=== PATIENT | female | born 1990 | race Two or more races ===

== ENCOUNTER 2025-03-12 15:02 | Outpatient (AMB) | payer MEDICAID, SELFPAY ==
[2025-03-12 15:39] VITALS: BP 102/69; PULSE 77; RESP 14; TEMP 36.7; O2SAT 97; BMI 29.0
--- NOTE | 2025-03-12 15:39 | OBCLNT_ITS ---
Vital Signs 03/12/25 15:39 Height 1.52 m Height Method Stated Weight 67.358 kg Weight Measurement Method Standing Scale BMI 29.0 BP 102/69 Blood Pressure Source Automatic Cuff Blood Pressure Location Left Upper Arm Position Sitting Respiration 14 Pulse 77 Pulse Source Monitor Temp 98.0 F Temp Source Oral Pulse Oximetry (%) 97 Oxygen Delivery Method Room Air Allergies/Home Meds Allergies & Medications Allergies No Known Allergies Allergy (Verified 03/19/25 06:57) Medication Reconciliation No Known Home Medications 03/12/25 [History Confirmed 03/12/25] Intake Visit Data Collection New Patient or Established: New Patient (never been to [facility]) Reason for Visit:: INITIAL CARE Seen by Clinical Staff ONLY (RN/MA): No Occupational Therapy Teacher Required: Yes Occupational Therapy Teacher's name/title: MAYURI DELEON Do You Feel Safe at Home: Yes Authorities Contacted: N/A PCP or OBGYN visit in last 3 months: No Hx Now: Yes Are you currently on any form of Control: No Last menstrual period: 08/13/24 Pain Present Currently: No Pain Scale Used: Tovar-Bailey/Numerical Pain scale:: 0 Smoking Status Smoking Status: Never smoker Questionnaires Covid-19 Vaccine Questionnaire Has patient been vacinated for Covid-19 Have you been vacinated for Covid-19: Yes PHQ-9 PHQ-2 Over the last 2 weeks, how often have you been bothered by any of the following problems? 1. Little interest or pleasure in doing things: not at all 2. Feeling down, depressed, or hopeless: not at all Total score: 0 PHQ-9 3. Trouble falling or staying asleep, or sleeping too much: Not at all 4. Feeling tired or having little energy: Not at all 5. Poor appetite or overeating: Not at all 6. Feeling bad about yourself - or that you are a failure or have let yourself or your family down: Not at all 7. Trouble concentrating on things, such as reading the newspaper or watching television: Not at all 8. Moving or speaking so slowly that other people could have noticed? - Or the opposite - being so fidgety or restless that you have been moving around a lot more than usual: not at all 9. Thoughts that you would be better off or of hurting yourself in some way: Not at all Total score: 0 Source: Developed by Drs. Raciel Cheng, Uma Ibanez, Prem Cruz and colleagues, with an educational chucho from [employer]. 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 Has 2 daughters aged 9 and 18 Tobacco History Smoking Status: Never smoker Second Hand Smoke Exposure: No Alcohol History Alcohol Intake: Never Domestic Abuse History Do You Feel Safe at Home: Yes History of Present Illness HPI Narrative The patient is a 34-year-old -0-0-2 presents as a transfer of care from [facility] at approximate 33 weeks. The due date patient has been given is 05/23/2025. She is approximately 29 weeks . Today she denies bleeding cramping or any complaints she is reporting good movement. She is considering a tubal ligation. 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: Past Medical History Additional Operations/Hospitalizations (year & reason): 2006 in [place] Primary 2015 in [place] for induced labor postdates with failed induction Other Relevant History: Denies chronic medical problems including asthma diabetes or asthma OB Initial Visit Menstrual History Menstrual reliability: definite Flow: normal Menstrual regularity: irregular Monthly: Yes Age at menarche: 14 On control pills at conception: No OB History : 3 Para: 2 # of Living Children: 2 Delivery History 1st : Child's name: DARSHANA date: 05/06[birth year] sex: female Gestational age at delivery (weeks): 40 Delivery type: vaginal weight (lbs): 3628.739 g Delivery complications: NONE History of depression before or after : No 2nd : Child's name: ANGELA date: 06/26/15 sex: female Gestational age at delivery (weeks): 39 Delivery type: weight (lbs): 3458.642 g Delivery complications: NONE History of depression before or after : No Infection History & Risk Evaluation History of STDs: none Genetic Screening & History Genetic Screening/Teratology Counseling - Includes patient, baby's father, or anyone in either family with: 1. Patient's age 35 years or older as of estimated date of delivery: No 2. Thalassemia (Belizean, Surinamese, Mediterranean, or Background); MCV less than 80: No 3. Neural Tube Defect (Meningomyelocele, Spina Bifida, or Anencephaly): No 4. Congenital Heart Defect: No 5. Down Syndrome: No 6. Mahamed-Sachs (Ashkenazi Gnosticist, Cajun, Spanish [place]): No 7. Frankie Disease (Ashkenazi Gnosticist): No 8. Familial Dysautonomia (Ashkenazi Gnosticist): No 9. Sickle Cell Disease or Trait (): No 10. Hemophilia or other blood disorders: No 11. Muscular Dystrophy: No 12. Cystic Fibrosis: No 13. Inyo's Chorea: No 14. Mental Retardation/Autism: No 15. Other inherited genetic or chromosomal disorder: No 16. Maternal Metabolic Disorder (EG,TYPE 1 Diabetes, PKU): No 17. Patient or baby's father had a child with defects not listed above: No 18. Recurrent loss or a stillbirth: No 19. Medications (including supplements, vitamins, herbs or otc drugs)/illicit/recreational drugs/alcohol since last menstrual period: No 20. Any other: No Infection History 1. Live with someone with TB or exposed to TB: No 2. Rash or viral illness since last menstrual period: No 3. Hepatitis B,C: No Other (see comments) Source: [employer] Exam Narrative Physical exam: Has a vertical skin incision patient verbally consents for a Pfannenstiel skin incision. Fundus firm approximately 30 weeks size General Limitations: no limitations General Appearance: alert, in no apparent distress, comfortable, cooperative, healthy appearing and well groomed Assessment & Plan Diagnosis / Problem List (1) : Status: Acute Qualifiers: Weeks of gestation: 29 weeks Qualified Code(s): Z3A.29 - 29 weeks gestation of Plan: labs from [facility] scanned in on chart. Labs O+ /antibody negative/ rubella immune /RPR nonreactive /hepatitis B surface antigen negative/ GC negative /Chlamydia negative /AFP negative /NIPT negative /CF negative (2) Previous section: Status: Acute Plan: Unknown scar in [place]. Plan for elective repeat approximately 38 weeks.
== END 2025-03-12 16:12 | disposition home or self-care (01) ==
LOC: HODSOBC 15:02
PROVIDERS: Supervising Provider Obstetrics & Gynecology; Visit Provider Obstetrics & Gynecology
DX: O09.293 Supervision of pregnancy with other poor reproductive or obstetric history, third trimester (principal); O34.212 Maternal care for vertical scar from previous cesarean delivery; Z3A.29 29 weeks gestation of pregnancy
CPT/HCPCS: 99204; G0463

== ENCOUNTER 2025-04-04 15:14 | Outpatient (AMB) | payer MEDICAID, SELFPAY ==
[2025-04-04 15:37] VITALS: BP 102/68; PULSE 94; RESP 16; TEMP 36.2; O2SAT 98; BMI 29.9
--- NOTE | 2025-04-04 15:37 | AMB.OBVISIT ---
Vital Signs 04/04/25 15:37 Height 1.52 m Height Method Stated Weight 69.173 kg Weight Measurement Method Standing Scale BMI 29.9 BP 102/68 Blood Pressure Source Automatic Cuff Blood Pressure Location Left Upper Arm Position Sitting Respiration 16 Pulse 94 Pulse Source Monitor Temp 97.2 F Temp Source Oral Pulse Oximetry (%) 98 Oxygen Delivery Method Room Air Allergies/Home Meds Allergies & Medications Allergies No Known Allergies Allergy (Verified 04/04/25 15:38) Medication Reconciliation No Known Home Medications 03/12/25 [History Confirmed 04/04/25] Intake Visit Data Collection New Patient or Established: Established Patient (seen at [facility] within 3 years) Reason for Visit:: OBC Seen by Clinical Staff ONLY (RN/MA): No Wind Turbine Electrical Engineer Required: No Do You Feel Safe at Home: Yes Authorities Contacted: N/A PCP or OBGYN visit in last 3 months: Yes Date of Last PCP or OBGYN visit: 03/12/25 Hx Now: Yes Are you currently on any form of Control: No Pain Present Currently: No Pain Scale Used: Tovar-Bailey/Numerical Pain scale:: 0 Smoking Status Smoking Status: Never smoker Questionnaires Covid-19 Vaccine Questionnaire Has patient been vacinated for Covid-19 Have you been vacinated for Covid-19: Yes PHQ-9 PHQ-2 Over the last 2 weeks, how often have you been bothered by any of the following problems? 1. Little interest or pleasure in doing things: not at all 2. Feeling down, depressed, or hopeless: not at all Total score: 0 PHQ-9 3. Trouble falling or staying asleep, or sleeping too much: Not at all 4. Feeling tired or having little energy: Not at all 5. Poor appetite or overeating: Not at all 6. Feeling bad about yourself - or that you are a failure or have let yourself or your family down: Not at all 7. Trouble concentrating on things, such as reading the newspaper or watching television: Not at all 8. Moving or speaking so slowly that other people could have noticed? - Or the opposite - being so fidgety or restless that you have been moving around a lot more than usual: not at all 9. Thoughts that you would be better off or of hurting yourself in some way: Not at all Total score: 0 If you checked off any problems, how difficult have these problems made it for you to do your work, take care of things at home, or get along with other people?: not difficult at all Source: Developed by Drs. Raciel Cehng, Uma Ibanez, Prem Cruz and colleagues, with an educational chucho from [employer]. 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 Denies leaking, bleeding, contractions. Patient was a transfer from [facility] with records. She had an ultrasound December 24 by the nurse wiring technician and she was 11 weeks by crown-rump length this gave EDC of June 03, 2025. First ultrasound by maternal- medicine was February 13. IUP of 25 weeks 5 days. And this gives due date May 23, 2020. Discussed dates and reviewed records. Advised on labor precautions. Patient has a follow-up ultrasound on Monday. Discussed kick count. And continue prenatals. Return in 2 weeks with OB. Patient is a previous and needs to be scheduled DELIA Calculator Estimated Delivery Date Method Current WG Current Estimate 05/24/25 Ultrasound #1 32w 6d Other Estimates 05/23/25 LMP (Uncertain) 33w 0d 05/24/25 Manual 32w 6d patient had office sono by [facility]OCK 12/24:11w CRL Notes Visit Date: 04/04/25 Last Updated by: Lydia Christiansen CNM O+,abs-, rpr:reactive, 1:1 ,TPAnegative, GC.CT-, hiv-, hc-, hbsag-, 1 hr gtt: 123, A1c: 4.7. [facility]- Office Procedures OBC Clinic LOC & Office Proc's Nursing/Assessment Patient Status: Established Patient OB Clinic Nursing Assessment: Medication Reconciliation, Update PMH in EMR and Vital Signs OB Clinic Coordination of Care: Consent,records obtained, informed consent, Education Simp Pt/Fam, Lab and Imaging orders, Results/Orders obtained and Staff clarify orders Special Needs: Heart tones Established Patient Charge Established Patient Point Assignment: 110 Established Patient Point Charge: EP Level 3 (80-115) Assessment & Plan Diagnosis / Problem List (1) Encounter for supervision of high-risk with 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 Keep follow-up appointment with maternal- medicine. Discussed dating and labs with patient. Discussed labor precautions. Increase fluids. And follow-up with OB in 2 weeks to schedule repeat Additional Plan Follow Up: 2 Weeks (obc)
== END 2025-04-04 16:09 | disposition home or self-care (01) ==
LOC: HODSOBC 15:14
PROVIDERS: Supervising Provider Advanced Practice Midwife; Visit Provider Advanced Practice Midwife
DX: O09.03 Supervision of pregnancy with history of infertility, third trimester (principal); O09.293 Supervision of pregnancy with other poor reproductive or obstetric history, third trimester; O34.219 Maternal care for unspecified type scar from previous cesarean delivery; Z3A.32 32 weeks gestation of pregnancy
CPT/HCPCS: 99213; G0463

== ENCOUNTER → 2025-04-07 | Outpatient (CLI) | payer MEDICAID, SELFPAY ==
--- NOTE | 2025-04-07 16:15 | XR_ITS ---
Examination: Complete OB ultrasound greater than 14 weeks Date and time of exam: April 07, 2025, 1600 hours INDICATIONS: Diagnosis small for gestational age Findings: Viable intrauterine single fetus with single amniotic sac presentation cephalic Cardiac motion 127 bpm Placenta fundal grade 3 Vocal cord insertion 3 vessels seen Amniotic fluid index 17.7 cm spine anterior Cervix 4.2 cm Right ovary 3.8 cm arterial flow. Left ovary 4.6 cm arterial flow. Composite estimated gestational age based on BPD, head circumference, abdominal circumference, femur length is 33 weeks 5 days Estimated weight 2295 g. Survey of intracranial anatomy, spinal anatomy, abdominal anatomy, four-chamber heart performed with no abnormalities identified. Impression: Viable intrauterine gestation in cephalic presentation.
== END | disposition home or self-care (01) ==
LOC: CDIM 16:37
PROVIDERS: PCP Obstetrics & Gynecology; Referring Provider Obstetrics & Gynecology; Visit Provider Obstetrics & Gynecology
DX: O36.5990 Maternal care for other known or suspected poor fetal growth, unspecified trimester, not applicable or unspecified (principal); Z3A.33 33 weeks gestation of pregnancy
CPT/HCPCS: 76805

== ENCOUNTER 2025-04-23 08:38 | Outpatient (AMB) | payer MEDICAID, SELFPAY ==
[2025-04-23 08:51] VITALS: BP 104/70; PULSE 84; RESP 16; TEMP 36.4; O2SAT 97; BMI 30.6
--- NOTE | 2025-04-23 08:51 | OBCLNT_ITS ---
Vital Signs 04/23/25 08:51 Height 1.52 m Height Method Stated Weight 70.76 kg Weight Measurement Method Standing Scale BMI 30.6 BP 104/70 Blood Pressure Source Automatic Cuff Blood Pressure Location Left Upper Arm Position Sitting Respiration 16 Pulse 84 Pulse Source Monitor Temp 97.6 F Temp Source Oral Pulse Oximetry (%) 97 Oxygen Delivery Method Room Air Allergies/Home Meds Allergies & Medications Allergies No Known Allergies Allergy (Verified 04/23/25 08:52) Medication Reconciliation No Known Home Medications 03/12/25 [History Confirmed 04/23/25] Intake Visit Data Collection New Patient or Established: Established Patient (seen at [facility] within 3 years) Reason for Visit:: CARE/ NEEDS GBS Seen by Clinical Staff ONLY (RN/MA): No Dyeing Machine Feeder Required: Yes Dyeing Machine Feeder's name/title: CHANTELLE THOMAS Do You Feel Safe at Home: Yes Authorities Contacted: N/A PCP or OBGYN visit in last 3 months: Yes Hx Now: Yes Are you currently on any form of Control: No Pain Present Currently: No Pain Scale Used: Tovar-Bailey/Numerical Pain scale:: 0 Smoking Status Smoking Status: Never smoker Immunizations Flu Vaccine in the Last 12 Months: No Flu Vaccine Exclusion Criteria: Refused by Patient Questionnaires Covid-19 Vaccine Questionnaire Has patient been vacinated for Covid-19 Have you been vacinated for Covid-19: No PHQ-9 PHQ-2 Over the last 2 weeks, how often have you been bothered by any of the following problems? 1. Little interest or pleasure in doing things: not at all 2. Feeling down, depressed, or hopeless: not at all Total score: 0 PHQ-9 3. Trouble falling or staying asleep, or sleeping too much: Not at all 4. Feeling tired or having little energy: Not at all 5. Poor appetite or overeating: Not at all 6. Feeling bad about yourself - or that you are a failure or have let yourself or your family down: Not at all 7. Trouble concentrating on things, such as reading the newspaper or watching television: Not at all 8. Moving or speaking so slowly that other people could have noticed? - Or the opposite - being so fidgety or restless that you have been moving around a lot more than usual: not at all 9. Thoughts that you would be better off or of hurting yourself in some w ay: Not at all Total score: 0 Source: Developed by Drs. Raciel Cheng, Uma Ibanez, Prem Cruz and colleagues, with an educational chucho from [employer]. 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 Denies leaking, bleeding, contractions. Patient was a transfer from [facility] with records. She had an ultrasound December 24 by the nurse electric motorman and she was 11 weeks by crown-rump length this gave EDC of June 03, 2025. First ultrasound by maternal- medicine was February 13. IUP of 25 weeks 5 days. And this gives due date May 23, 2020. Discussed dates and reviewed records. Advised on labor precautions. Patient has a follow- up ultrasound on Monday. Discussed kick count. And continue prenatals. Return in 2 weeks with OB. Patient is a previous and needs to be scheduled 04/23/25 -?-?-?-?-?-?-?-?-?-?-?-?- 35w 4d 70.76 kg 104/70 absent unknown 36 155 active - Meghna Smiley is a female presenting for care with a scheduled section on May 20 at 7:30 AM. - She reports the baby is active with no contractions or problems. - She desires tubal ligation to be perfo rmed at the time of delivery. - Her previous section was perf ormed in [place]. - She denies any current complications or concerns. - Scheduled C- section for May 20 at 7:30 AM - Weekly appointments until surgery - Obtain signed tubal ligation consent f orm with backdated signature - Perform GBS swab - Use [id number] incision rather than previous up-down incision - Follow up in one week DELIA Calculator Estimated Delivery Date Method Current WG Current Estimate 05/24/25 Ultrasound #1 35w 4d Other Estimates 05/23/25 LMP (Uncertain) 35w 5d 05/24/25 Manual 35w 4d patient had off ice sono by ROCK 12/24:11w CRL Notes Visit Date: 04/04/25 Last Updated by: Lydia Christiansen CNM O+,abs-, rpr:reactive, 1:1 ,TPAnegative, GC.CT-, hiv-, hc-, hbsag-, 1 hr gtt: 123, A1c: 4.7. [place]- Office Procedures OBC Clinic LOC & Office Proc's Nursing/Assessment Patient Status: Established Patient OB Clinic Nursing Assessment: Medication Reconciliation, Update PMH in EMR and Vital Signs OB Clinic Coordination of Care: Complex Care and Chronic Disease 1-5, Consent,records obtained, informed consent, Education Simp Pt/Fam, 1 Ins Authorization, Lab and Imaging orders, Results/Orders obtained and Staff clarify orders Special Needs: Heart tones Miscellaneous Interventions: Culture Specimen Collection Established Patient Charge Established Patient Point Assignment: 165 Established Patient Point Charge: EP Level 5 (160-above)
== END 2025-04-23 09:14 | disposition home or self-care (01) ==
PROVIDERS: Supervising Provider Obstetrics & Gynecology; Visit Provider Obstetrics & Gynecology
DX: O09.293 Supervision of pregnancy with other poor reproductive or obstetric history, third trimester (principal); O34.219 Maternal care for unspecified type scar from previous cesarean delivery; Z3A.35 35 weeks gestation of pregnancy; Z36.85 Encounter for antenatal screening for Streptococcus B
CPT/HCPCS: 99215; G0463

== ENCOUNTER 2025-05-08 15:12 | Outpatient (AMB) | payer MEDICAID, SELFPAY ==
--- NOTE | 2025-05-08 15:19 | OBCLNT_ITS ---
Vital Signs 05/08/25 15:21 Height 1.52 m Height Method Stated Weight 72.291 kg Weight Measurement Method Standing Scale BMI 31.3 BP 103/70 Blood Pressure Source Automatic Cuff Blood Pressure Location Right Upper Arm Position Sitting Respiration 18 Pulse 85 Pulse Source Monitor Temp 98.4 F Temp Source Temporal Artery Scan Pulse Oximetry (%) 97 Oxygen Delivery Method Room Air Allergies/Home Meds Allergies & Medications Allergies No Known Allergies Allergy (Verified 05/08/25 15:21) Medication Reconciliation No Known Home Medications 03/12/25 [History Confirmed 05/08/25] Intake Visit Data Collection New Patient or Established: Established Patient (seen at [facility] within 3 years) Reason for Visit:: OBC Seen by Clinical Staff ONLY (RN/MA): No Business Programmer Required: Yes Business Programmer's name/title: CHANTELLE THOMAS MA Do You Feel Safe at Home: Yes Authorities Contacted: N/A PCP or OBGYN visit in last 3 months: Yes Date of Last PCP or OBGYN visit: 04/23/25 Hx Now: Yes Are you currently on any form of Control: No Pain Present Currently: No Pain Scale Used: Tovar-Bailey/Numerical Pain scale:: 0 Smoking Status Smoking Status: Never smoker Immunizations Flu Vaccine in the Last 12 Months: No Flu Vaccine Exclusion Criteria: No Exclusion Criteria Questionnaires Covid-19 Vaccine Questionnaire Has patient been vacinated for Covid-19 Have you been vacinated for Covid-19: No PHQ-9 PHQ-2 Over the last 2 weeks, how often have you been bothered by any of the following problems? 1. Little interest or pleasure in doing things: not at all 2. Feeling down, depressed, or hopeless: not at all Total score: 0 PHQ-9 3. Trouble falling or staying asleep, or sleeping too much: Not at all 4. Feeling tired or having little energy: Not at all 5. Poor appetite or overeating: Not at all 6. Feeling bad about yourself - or that you are a failure or have let yourself or your family down: Not at all 7. Trouble concentrating on things, such as reading the newspaper or watching television: Not at all 8. Moving or speaking so slowly that other people could have noticed? - Or the opposite - being so fidgety or restless that you have been moving around a lot more than usual: not at all 9. Thoughts that you would be better off or of hurting yourself in some way: Not at all Total score: 0 If you checked off any problems, how difficult have these problems made it for you to do your work, take care of things at home, or get along with other people?: not difficult at all Source: Developed by Drs. Raciel Cheng, Uma Ibanez, Prem Cruz and colleagues, with an educational chucho from [employer]. 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 Has 2 daughters aged 9 and 18 Tobacco History Smoking Status: Never smoker Second Hand Smoke Exposure: No Alcohol History Alcohol Intake: Never Domestic Abuse History Do You Feel Safe at Home: Yes Care OB Visit Log OB Flowsheet Initial Weight: Not Recorded Date -?-?-?-?-?-?-?-?-?-?-?-?- EGA Weight BP Alb Glu CTX Pres Fundal ht FHR Mov Dilation Station Effacement Hx Notes Visit Note 04/04/25 -?-?-?-?-?-?-?-?-?-?-?-?- 32w 6d 69.173 kg 102/68 absent unknown 31 145 active Reports movement. Denies leaking, bleeding, contractions. Patient was a transfer from [facility] with records. She had an ultrasound December 24 by the nurse horse wrangler and she was 11 weeks by crown-rump length this gave EDC of June 03, 2025. First ultrasound by maternal- medicine was February 13. IUP of 25 weeks 5 days. And this gives due date May 23, 2020. Discussed dates and reviewed records. Advised on labor precautions. Patient has a follow- up ultrasound on Monday. Discussed kick count. And continue prenatals. Return in 2 weeks with OB. Patient is a previous and needs to be scheduled 04/23/25 -?-?-?-?-?-?-?-?-?-?-?-?- 35w 4d 70.76 kg 104/70 absent unknown 36 155 active - Meghna Smiley is a female presenting for care with a scheduled section on May 20 at 7:30 AM. - She reports the baby is active with no contractions or problems. - She desires tubal ligation to be perfo rmed at the time of delivery. - Her previous section was perf ormed in [place]. - She denies any current complications or concerns. - Scheduled C- section for May 20 at 7:30 AM - Weekly appointments until surgery - Obtain signed tubal ligation consent f orm with backdated signature - Perform GBS swab - Use [id number]-np-whar incision rather than previous up-down incision - Follow up in one week 05/08/25 -?-?-?-?-?-?-?-?-?--?-?-?- 37w 5d 72.291 kg 103/70 absent unknown 38 145 active No contractions, LOF, VB and reports good FM. Denies PAULA, VC, and epigastric pain. - She reports no contractions and confir ms baby is moving appropriately. - She denies concerns about decreased fe arnold activity, leaking fluid, or contractions. - Scheduled cesa rean section on May 20 at 7:30 AM - Check in at hospital at 5:30 AM on day of surgery - NPO after 10:00 PM the night before gao rgery - Patient to register at [facility] hospital e ntrance prior to section - Report to 4th floor of [facility] hospital f or procedure - Return to hospital immediately if expe riencing decreased movement, leaking fluid, or contractions DELIA Calculator Estimated Delivery Date Method Current WG Current Estimate 05/24/25 Ultrasound #1 37w 6d Other Estimates 05/23/25 LMP (Uncertain) 38w 0d 05/24/25 Manual 37w 6d patient had off ice sono by [facility]OCK 12/24:11w CRL Notes Visit Date: 04/04/25 Last Updated by: Lydia Christiansen CNM O+,abs-, rpr:reactive, 1:1 ,TPAnegative, GC.CT-, hiv-, hc-, hbsag-, 1 hr gtt: 123, A1c: 4.7. [place]- Office Procedures OBC Clinic LOC & Office Proc's Nursing/Assessment Patient Status: Established Patient OB Clinic Nursing Assessment: Medication Reconciliation, Update PMH in EMR and Vital Signs OB Clinic Coordination of Care: Complex Care and Chronic Disease 1-5, Education Complex Pt/Fam, Consent,records obtained, informed consent, Results/Orders obtained and Staff clarify orders Special Needs: Heart tones Established Patient Charge Established Patient Point Assignment: 125 Established Patient Point Charge: EP Level 4 (120-155) Assessment & Plan Diagnosis / Problem List (1) Encounter for supervision of high-risk with 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 GBS culture from last week is negative. Patient reports no contractions and normal movement. heart rate is normal at 130-132 bpm. Plan - Scheduled section on May 20 at 7:30 AM - Check in at hospital at 5:30 AM on day of surgery - NPO after 10:00 PM the night before surgery - Patient to register at [facility] entrance prior to section - Report to 4th floor [facility] for procedure - Return to hospital immediately if experiencing decreased movement, leaking fluid, or contractions 1. Progress Reviewed gestational age at 37 weeks and 5 days, growth, and heart rate (130-132 bpm, normal). Scheduled section for May 20 at 7:30 AM. 2. Instructed patient to monitor movements and report decreases immediately. Patient confirmed baby is moving well. 3. Testing GBS culture from last week was negative. 4. Preeclampsia Precaution Educated on preeclampsia signs: severe headache, vision changes, right upper quadrant pain, sudden swelling. Advised urgent reporting of symptoms and discussed blood pressure monitoring if high risk. 5. Labor Precautions Reviewed labor signs: regular contractions, pelvic pressure, back pain, bleeding, or fluid leakage. Instructed to seek immediate care for these symptoms including baby not being active, leaking, or any contractions. 6. Lifestyle and Delivery Preparation Discussed section preparation including NPO after 10 PM the night before surgery and check-in at 5:30 AM. Advised patient to register at [facility] hospital gate before surgery date. Patient to report to 4th floor [facility]. 7. Psychosocial Support Assessed emotional well-being and offered resources for mental health or parenting support.
[2025-05-08 15:21] VITALS: BP 103/70; PULSE 85; RESP 18; TEMP 36.9; O2SAT 97; BMI 31.3
== END 2025-05-08 15:41 | disposition home or self-care (01) ==
LOC: HODSOBC 15:12
PROVIDERS: Supervising Provider Obstetrics & Gynecology; Visit Provider Obstetrics & Gynecology
DX: O09.293 Supervision of pregnancy with other poor reproductive or obstetric history, third trimester (principal); O34.219 Maternal care for unspecified type scar from previous cesarean delivery; O09.893 Supervision of other high risk pregnancies, third trimester; O36.5930 Maternal care for other known or suspected poor fetal growth, third trimester, not applicable or unspecified; Z3A.37 37 weeks gestation of pregnancy
CPT/HCPCS: 99214; G0463

== ENCOUNTER 2025-05-20 05:36 | Inpatient (IN) | payer MEDICAID, SELFPAY ==
[2025-05-20] VITALS (39 sets, daily range): BP systolic 89–104; BP diastolic 56–76; PULSE 73–104; RESP 11–20; TEMP 36.5–37.1; O2SAT 94–100; BMI 30.3
[2025-05-20] MEDS: RINGERS LACTATED 1000 ML 1,000 ML 100 ML IV (06:05)
[2025-05-20 06:22] LABS: Basophils # (Auto) 0.1 Thou/mm3 (0.0-0.2); Basophils % (Auto) 1 % (0-2.5); Eosinophils # (Auto) 0.1 Thou/mm3 (0.0-0.5); Eosinophils % (Auto) 1 % (0-10); Hematocrit 37.0 % (36.0-46.0); Hemoglobin 13.4 g/dL (12.0-16.0); Immature Granulocytes Auto 0.09 Thou/mm3 (0.00-0.00); Lymphocytes # (Auto) 1.9 Thou/mm3 (1.0-4.8); Lymphocytes % (Auto) 20 % (10-50); Mean Corpuscular HGB Conc 36.2 g/dl (31.0-37.0); Mean Corpuscular Hemoglobin 34.5 pg (25.0-35.0); Mean Corpuscular Volume 95 fL (80-100); Monocytes # (Auto) 0.8 Thou/mm3 (0.0-0.8); Monocytes % (Auto) 9 % (0-12); Neutrophils # (Auto) 6.4 Thou/mm3 (1.8-7.7); Neutrophils % (Auto) 69 % (37-80); Nucleated Red Blood Cell # 0.00 Thou/mm3 (0.00-0.00); Nucleated Red Blood Cell % 0 /100 WBC (0); Platelet Count 149 Thou/mm3 (140-440); RDW Standard Deviation 45.3 fL (36.4-46.3); Red Blood Count 3.88 Miln/mm3 (4.00-5.20); White Blood Count 9.3 Thou/mm3 (3.6-11.0)
[2025-05-20 06:51] LABS: Amphetamine/Metham Scrn,Ur OB Negative (Negative); Benzoylecgonine Screen, Ur OB Negative (Negative); Opiate Screen,Urine OB Negative (Negative); THC Screen,Urine OB Negative (Negative)
[2025-05-20 07:12] LABS: Syphilis Nonreactive (Nonreactive)
[2025-05-20] MEDS: FAMOTIDINE INJ 10 MG/ML VIAL 2 ML 20 MG IV (07:26)
[2025-05-20] MEDS: ceFAZolin/D5W 2 GM IV 2 GM/100 ML BAG IV (07:26)
--- NOTE | 2025-05-20 07:49 | PD.LDHP ---
Documentation for date of: 05/20/25 OB Labor/Induct. HPI History of Present Illness Chief complaint: Schedule repeat : 3 Para: 2 Term pregnancies: 2 pregnancies: 0 Living children: 2 History of Abortions: Spontaneous and Elective: 0 History of Vaginal deliveries: 1 History of sections: Yes Date of last menstrual period: 09/11/24 DELIA: 05/24/25 Gestational Age (weeks): 39 Gestational Age (days): 3 Gestational age based on last menstrual period: 35 History of present illness: 35-year-old 3 para 2-0-0-2 at 39 weeks and 3 days estimated due date of 05/24/2025 based on presents for her scheduled repeat low-transverse and bilateral tubal ligation Patient denies any contractions or leakage of fluid or vaginal bleeding and reports good movements. Patient has no other complaints on presentation. Patient has a previous vertical skin incision from [place] but she would like to have a transverse incision for this delivery Labs Labs: Positive: Rubella Titre, Negative: RPR, Hepatitis B, HIV, Chlamydia, Gonorrhea and Group Beta Strep and Unknown: Herpes Type 1, Herpes Type 2 and Covid-19 Past Medical History Surgical History SURGICAL: Positive Section Meds Home Medications and Allergies Home Medications ?Medication ?Instructions ?Recorded ?Confirmed ?Type No Known Home Medications 03/12/25 05/08/25 History Allergies Allergy/AdvReac Type Severity Reaction Status Date / Time No Known Allergies Allergy Verified 05/20/25 06:09 OB Exam Physical Exam Vital signs: Temp Pulse Resp BP Pulse Ox O2 Del Method 98.1 F 92 16 100/70 99 Room Air 05/20/25 07:39 05/20/25 05:57 05/20/25 07:39 05/20/25 05:57 05/20/25 07:40 05/20/25 06:08 Constitutional Constitutional: no acute distress Routine HEENT Exam Head: Present normocephalic and atraumatic Eye: Present EOMI and PERRL ENT: Present mucous membranes moist Routine Neck Exam Neck: Present supple and trachea midline Routine Cardiovascular Exam Cardiovascular: Present RRR Routine Abdominal Exam Abdominal: Present soft and normoactive bowel sounds Detailed Labor and Delivery Exam Dilation (cm): 0 Presentation: Vertex Baseline heart rate: 145 monitor accelerations: 15x15 monitor decelerations: None Routine Extremities Exam Extremities: Present full ROM Routine Skin Exam Skin: Present intact, dry and warm Routine Neurological Exam Neurological: Present alert, oriented X3 and CN II-XII intact Routine Psychiatric Exam Psychiatric: Present normal affect and normal thought process OB Results Labs 05/20/25 06:05 Labs: Short CBC 05/20/25 Range/Units 06:05 WBC 9.3 (3.6-11.0) Thou/mm3 Hgb 13.4 (12.0-16.0) g/dL Hct 37.0 (36.0-46.0) % Plt Count 149 (140-440) Thou/mm3 OB Assessment & Plan Assessment and Plan (1) Encounter for supervision of high-risk with 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 (3) SGA (small for gestational age), , affecting care of mother, antepartum: Status: Acute
--- NOTE | 2025-05-20 08:49 | PC.NURSE ---
partial hysterectomy started verbal OR received from Dr. Joseph for 2 units of PRBC's on hold and 1 unit of FFP, charge nurse Yolanda Arriaza also called and made aware.
--- NOTE | 2025-05-20 09:21 | ESOP_ITS ---
Operative Note - WIND DEVELOPMENT DIRECTOR Procedure Date of procedure: 05/20/25 Procedure Performed: Low-transverse section converted to hysterectomy Indication: 35-year-old at 39 weeks and 3 days with previous Intrapartum hemorrhage Post-Op diagnosis: Same as preop Anesthesia type: Spinal Procedure description: Informed consent was obtained and the patient was taken to the operating room.? Identity was confirmed by double identifiers and she was placed on the operating table.? Spinal anesthesia was administered and she was positioned in the supine position.? The abdomen and perineum were prepped in the usual sterile fashion and a Juarez catheter was placed to continuous drainage.? Sterile drapes were applied.? The incision site was tested for adequacy of anesthesia.? A Pfannenstiel skin incision was made with a scalpel and carried to the subcutaneous fat up to the rectus fascia.? The rectus fascia was incised on either side of the midline and the incisions were extended bilaterally.? The fascia was gently dissected off the ventral surface of the rectus muscle both superiorly and inferiorly.? The rectus bellies were gently in the midline and the peritoneum was identified and entered bluntly using the surgeon's finger.? The peritoneal opening was now stretched to create an adeq uate opening for access to the uterus.? Sarmad O-ring retractor was placed for adequate visualization.? The anterior surface of the uterus was palpated.? The bladder reflection was identified and a Angela Rachel low transverse uterine incision was made in the lower uterine segment taking care to avoid the bladder.? Uterine entry was accomplished bluntly and the opening was stretched to create adequate room.? The amniotic membranes were now ruptured and clear amniotic fluid was released.? The fetus was noted to be in the vertex position.? The head was gently elevated out of the maternal pelvis and the rest of the shoulders and body were delivered by gentle fundal pressure.? A single loop of nuchal cord was identified and it was reduced without difficulty. Umbilical cord was doubly clamped, divided and the infant was handed over to the waiting team.? Cord gas samples were obtained.? The placenta was delivered by gentle traction on the umbilical cord.? The interior of the uterus was now thoroughly cleaned of all blood and debris and membranes.? The hysterotomy angles were grasped by a pair of Allis clamps and the hysterotomy was closed using 1 Monocryl suture in 2 layers.? The first layer was used to approximate the muscle in a running locked fashion, the second layer was used to approximate the thickness of the myometrium?and uterine serosa in an imbricated manner.? Once the repair was completed the hysterotomy was inspected and multiple areas of hemorrhage were noted towards the left angle of the hysterotomy. Ujvkbq-hr-bronr stitches were applied to compress the bleeding points. Due to adenomyotic texture of the uterus and multiple intramural leiomyomas the tissue was very friable and hemostasis could not be attained. Next Penny stitch was placed on the left to compress the uterine vessels. In spite of this the hysterotomy continued to ooze. At this time the patient was informed about the ongoing bleeding and she provided verbal consent to proceed with a hysterectomy. The to start the procedure the hysterotomy repair was reopened. The uterus was placed under cephalad traction. Dissection was started from the right utero-ovarian ligament which was sealed and divided using the Enseal device. Next the right round ligament was sealed and divided. Dissection was carried circumferentially at the supracervical junction. Next the left side was dissected in a similar fashion starting with the utero-ovarian ligament followed by the round ligament. Once the adnexa were sufficiently clear of the uterine corpus the uterus was placed under cephalad traction and the uterine stump was amputated at the supracervical junction. The anterior aspect was inspected and the bladder reflection was identified, dissected sharply and the bladder was taken down. The cervical stump was closed using 1 Monocryl in a running locked fashion. Hemostasis was now noted to be satisfactory. Surgicel snow was placed for additional hemostatic effect. The Sarmad retractor was now removed.? The peritoneal edges were re approximated.? The rectus muscles we re approximated.? The rectus fascia was now repaired using 0 Vicryl suture in a running fashion.? The subcutaneous layer was now copiously irrigated using warm normal saline.? All bleeding points were cauterized using the Bovie.? The subcutaneous fat was closed using 3-0 Vicryl.? The skin was closed using 4-0 Monocryl in a subcuticular fashion.? The skin was cleaned and a sterile dressing was applied.? The patient was now undraped, the abdomen and back were thoroughly cleaned and she was transferred to the recovery room in a stable and awake condition.? The patient tolerated the entire procedure well.? No complications were encountered.? All instrument, sponge and lap counts were correct x2. Specimen: uterus, left tube and right tube Estimated blood loss (ml): 1,000 Complications: intraoperative hemorrhage Surgical staff Operation Date: 05/20/25 07:45 <No data on this case meets the specified criteria> Diagnosis Discharge Diagnosis (1) Encounter for supervision of high-risk with history of infertility in third trimester: Status: Acute (2) Previous section: Status: Acute (3) S/P emergency hysterectomy: Status: Acute (4) Intraoperative hemorrhage: Status: Acute Problem List Completed Was Problem List Reviewed/Reconciled?: Yes
--- NOTE | 2025-05-20 12:26 | PD.LDDELS ---
Data (Zabala) Data Hx Section: Yes : 3 Term: 2 : 0 Livin Abortions: Spontaneous & Theraputic: 0 Delivery Data (Zabala) Labor Data Induction/Augmentation Agent: None ROM date: 05/20/25 ROM time: 08:11 Amniotic membrane rupture type: Artificial Amniotic fluid description: Clear Delivery Data delivery date: 05/20/25 delivery time: 08:11 Placenta delivery date: 05/20/25 Placenta delivery time: 08:11 Delivered by: Doc Joseph Delivery nurse: Sea Nayak RN Neworn nurse: Cassandra VELA RN Credit Analysis Manager at delivery: No Support person(s) at delivery: fob Delivery Method Delivery method: Low Transverse Presentation: Vertex Anesthesia Type Anesthesia Type: None Anesthesia type: Spinal Placenta Placenta delivery description: Manual Removal Cord blood sent to lab: Yes cord blood collection: Cord Blood Type Episiotomy Episiotomy description: None Umbilical Cord cord description: 3 Vessels Rumney Data (Zabala) Rumney Data order: 1 's gender: Male weight (gms): 3480 g Weight (pounds): 7 lbs and 10.8 ozs Rumney length: 50.8 cm 1 minute: 9 5 minutes: 9
[2025-05-20] MEDS: SODIUM CHLORIDE 0.9% 1000 ML 1,000 ML 200 ML IV ×3 (12:41→23:09)
[2025-05-20] MEDS: ACETAMINOPHEN IVPB 1,000 MG/100 ML VIAL 250 MG IV ×2 (12:42→18:05)
[2025-05-20 13:09] LABS: Basophils # (Auto) 0.0 Thou/mm3 (0.0-0.2); Basophils % (Auto) 0 % (0-2.5); Eosinophils # (Auto) 0.0 Thou/mm3 (0.0-0.5); Eosinophils % (Auto) 0 % (0-10); Hematocrit 31.6 % (36.0-46.0); Hemoglobin 11.2 g/dL (12.0-16.0); Immature Granulocytes Auto 0.16 Thou/mm3 (0.00-0.00); Lymphocytes # (Auto) 0.7 Thou/mm3 (1.0-4.8); Lymphocytes % (Auto) 4 % (10-50); Mean Corpuscular HGB Conc 35.4 g/dl (31.0-37.0); Mean Corpuscular Hemoglobin 34.1 pg (25.0-35.0); Mean Corpuscular Volume 96 fL (80-100); Monocytes # (Auto) 0.3 Thou/mm3 (0.0-0.8); Monocytes % (Auto) 2 % (0-12); Neutrophils # (Auto) 16.5 Thou/mm3 (1.8-7.7); Neutrophils % (Auto) 93 % (37-80); Nucleated Red Blood Cell # 0.00 Thou/mm3 (0.00-0.00); Nucleated Red Blood Cell % 0 /100 WBC (0); Platelet Count 136 Thou/mm3 (140-440); RDW Standard Deviation 44.5 fL (36.4-46.3); Red Blood Count 3.28 Miln/mm3 (4.00-5.20); White Blood Count 17.7 Thou/mm3 (3.6-11.0)
[2025-05-20] MEDS: SODIUM CHLORIDE 0.9% 1000 ML 1,000 ML 999 ML IV (16:21)
[2025-05-21] MEDS: ACETAMINOPHEN IVPB 1,000 MG/100 ML VIAL 250 MG IV ×4 (00:05→18:25)
[2025-05-21 00:11] VITALS: BP 91/64; PULSE 87; RESP 14; TEMP 36.8; O2SAT 97
[2025-05-21 03:51] VITALS: BP 94/58; PULSE 78; RESP 19; TEMP 36.7; O2SAT 96
[2025-05-21 05:47] LABS: Basophils # (Auto) 0.0 Thou/mm3 (0.0-0.2); Basophils % (Auto) 0 % (0-2.5); Eosinophils # (Auto) 0.0 Thou/mm3 (0.0-0.5); Eosinophils % (Auto) 0 % (0-10); Hematocrit 23.8 % (36.0-46.0); Immature Granulocytes Auto 0.14 Thou/mm3 (0.00-0.00); Lymphocytes # (Auto) 2.0 Thou/mm3 (1.0-4.8); Lymphocytes % (Auto) 15 % (10-50); Mean Corpuscular HGB Conc 35.3 g/dl (31.0-37.0); Mean Corpuscular Hemoglobin 34.9 pg (25.0-35.0); Mean Corpuscular Volume 99 fL (80-100); Monocytes # (Auto) 1.1 Thou/mm3 (0.0-0.8); Monocytes % (Auto) 8 % (0-12); Neutrophils # (Auto) 10.2 Thou/mm3 (1.8-7.7); Neutrophils % (Auto) 75 % (37-80); Nucleated Red Blood Cell # 0.00 Thou/mm3 (0.00-0.00); Nucleated Red Blood Cell % 0 /100 WBC (0); Platelet Count 107 Thou/mm3 (140-440); RDW Standard Deviation 47.0 fL (36.4-46.3); Red Blood Count 2.41 Miln/mm3 (4.00-5.20); White Blood Count 13.6 Thou/mm3 (3.6-11.0)
[2025-05-21 05:50] LABS: Hemoglobin 8.4 g/dL (12.0-16.0)
[2025-05-21 06:06] LABS: Anion Gap 9 (7-16); BUN/Creatinine Ratio 10 Ratio (12-20); Blood Urea Nitrogen < 5 mg/dL (9-23); Calcium 8.0 mg/dL (8.3-10.6); Carbon Dioxide 23.6 mMol/L (20.0-31.0); Chloride 111 mMol/L (98-107); Creatinine (Component) 0.5 mg/dL (0.6-1.3); Estimated Creatinine Clearance 140.1 mL/min (>60); Glucose 80 mg/dL (74-106); Osmolality,Calculated 283 (275-295); Potassium 3.7 mMol/L (3.4-5.1); Sodium 144 mMol/L (136-145); eGFR > 60 See Note
[2025-05-21 07:15] VITALS: BP 95/60; PULSE 74; RESP 15; TEMP 36.9; O2SAT 96
[2025-05-21] MEDS: DOCUSATE SOD 100 MG CAPSULE PO (08:14)
--- NOTE | 2025-05-21 09:06 | PD.LDPPPRG ---
Subjective Subjective Interval history: The patient is a 35-year-old -0-0-3 status post repeat turned into a C hysterectomy yesterday morning by Dr. Joseph. This morning the patient is resting comfortably in bed. She is Hebrew-speaking only and bedside rounds are performed with a labor and delivery nurse, Brii. Today the patient was told that she had a hysterectomy. She told us the nurse had explained this to her. She understands she will not have menstrual cycles anymore but her ovaries will still function normally. She understands she can no longer bear children, the patient had already signed tubal ligation papers. She understands that the nurses are not doing fundal checks because the patient has no uterus. She is breast-feeding her baby, tolerating a general diet, and voiding. Her Juarez catheter is out. Her predelivery hemoglobin is 13.4. Immediate postdelivery hemoglobin is 11.2. This morning her hemoglobin is down to 8.4. Her pain is controlled with oral pain medications. All questions were answered. Exam Vital Signs Temp Pulse Resp BP Pulse Ox O2 Del Method 98.4 F 74 15 95/60 96 Room Air 05/21/25 07:15 05/21/25 07:15 05/21/25 07:15 05/21/25 07:15 05/21/25 07:15 05/21/25 07:15 Narrative Exam The patient is alert and orient x 3 in no apparent distress. Abdomen is soft. She has a vertical scar from a [place]. Her Pfannenstiel skin incision is healing well and is clean dry and intact. Extremities show no cyanosis clubbing or edema. Objective Labs 05/21/25 05:09 05/21/25 05:09 Labs: Laboratory Results - last 24 hr 05/20/25 05/20/25 05/21/25 06:05 12:54 05:09 WBC 17.7 H D 13.6 H RBC 3.28 L 2.41 L Hgb 11.2 L D 8.4 L D Hct 31.6 L 23.8 L MCV 96 99 MCH 34.1 34.9 MCHC 35.4 35.3 RDW Std Deviation 44.5 47.0 H Plt Count 136 L 107 L D Neut % (Auto) 93 H 75 Lymph % (Auto) 4 L 15 [place] % (Auto) 2 8 Eos % (Auto) 0 0 Baso % (Auto) 0 0 Neut # (Auto) 16.5 H 10.2 H Lymph # (Auto) 0.7 L 2.0 [place] # (Auto) 0.3 1.1 H Eos # (Auto) 0.0 0.0 Baso # (Auto) 0.0 0.0 Immature Gran # (Auto) 0.16 H 0.14 H Absolute Nucleated RBC 0.00 0.00 Immature Gran % 1 H 1 H Nucleated RBC % 0 0 Sodium 144 Potassium 3.7 Chloride 111 H Carbon Dioxide 23.6 Anion Gap 9 BUN < 5 L Creatinine 0.5 L Estim Creat Clear Calc 140.1 eGFR > 60 BUN/Creatinine Ratio 10 L Glucose 80 Calculated Osmolality 283 Calcium 8.0 L Blood Type O Positive Antibody Screen NEGATIVE Crossmatch See Detail Blood Bank Wristband ID Yes Blood Bank Comment FFP Ready Assessment & Plan Problem List (1) Encounter for supervision of high-risk with 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 Ambulate the halls. Advance diet as tolerated. P.o. pain medications. Probable discharge tomorrow. Status: Acute (4) Intraoperative hemorrhage: Problem details: Recheck hemoglobin in the morning. Status: Acute Time Spent With Patient Time: Total time spent is greater than 50% in coordination of care (as documented) at patient's floor/unit and/or counseling patient: Time with patient: less than 15 minutes
--- NOTE | 2025-05-21 10:51 | PC.SS ---
ADULT SECONDARY EDUCATION INSTRUCTOR conducted bedside contact with the patient to address nursing referral indicating patient was late to care at 14 weeks.? ADULT SECONDARY EDUCATION INSTRUCTOR utilized music agent to assist with discussion.? ADULT SECONDARY EDUCATION INSTRUCTOR introduced self and role.? At bedside with patient was Stan CANELA.? Patient gave permission for FOB to be present during discussion.? ADULT SECONDARY EDUCATION INSTRUCTOR reviewed basis of referral.? Patient confirmed late to care (14 weeks) due to the patient not being aware of . Upon confirmation, initial OB appointment made after 12 week timeline.? OB services conducted with Lydia Christiansen.? Patient reports consistency with OB appointments.? Infant, Ambrocio; is the patient?s third child.? delivered via .? Patient is receiving WIC.? Patient is not receiving SNAP or TANF.? Patient denies history of alcohol/drug abuse.? Patient denies CWS intervention.? Patient denies episodes of domestic violence.? Patient denies possessing a history of mental health, reports no current possession of depression or anxiety.? Patient plans on combo feeding the .? Patient has access to appropriate supplies and equipment; to include a car seat.? FOB will provide transportation upon discharge.? Patient describes possessing support system consisting of FOB and family.? ADULT SECONDARY EDUCATION INSTRUCTOR provided the patient with community resources to include Parenting Network and Warm Line.? No further intervention required at this time, social services technician will be available to address any further concerns.? ADULT SECONDARY EDUCATION INSTRUCTOR updated bedside nurse.?
[2025-05-21 11:04] VITALS: BP 93/60; PULSE 80; RESP 18; TEMP 37; O2SAT 96
[2025-05-21] MEDS: DIPHTH,PERTUSS(ACELL),TET VAC 0.5 ML SYR- ADULT IMi (15:35)
[2025-05-21 19:40] VITALS: BP 95/59; PULSE 80; RESP 16; TEMP 37.2; O2SAT 96
[2025-05-21 23:15] VITALS: BP 96/60; PULSE 78; RESP 16; TEMP 36.8; O2SAT 96
[2025-05-22] MEDS: ACETAMINOPHEN IVPB 1,000 MG/100 ML VIAL 250 MG IV ×2 (00:38→12:15)
[2025-05-22 04:00] VITALS: BP 96/59; PULSE 81; RESP 16; TEMP 37.2
[2025-05-22 06:01] LABS: Basophils # (Auto) 0.1 Thou/mm3 (0.0-0.2); Basophils % (Auto) 1 % (0-2.5); Eosinophils # (Auto) 0.1 Thou/mm3 (0.0-0.5); Eosinophils % (Auto) 1 % (0-10); Hematocrit 24.2 % (36.0-46.0); Immature Granulocytes Auto 0.13 Thou/mm3 (0.00-0.00); Lymphocytes # (Auto) 2.0 Thou/mm3 (1.0-4.8); Lymphocytes % (Auto) 19 % (10-50); Mean Corpuscular HGB Conc 35.1 g/dl (31.0-37.0); Mean Corpuscular Hemoglobin 34.6 pg (25.0-35.0); Mean Corpuscular Volume 98 fL (80-100); Monocytes # (Auto) 0.7 Thou/mm3 (0.0-0.8); Monocytes % (Auto) 7 % (0-12); Neutrophils # (Auto) 7.6 Thou/mm3 (1.8-7.7); Neutrophils % (Auto) 71 % (37-80); Nucleated Red Blood Cell # 0.00 Thou/mm3 (0.00-0.00); Nucleated Red Blood Cell % 0 /100 WBC (0); Platelet Count 128 Thou/mm3 (140-440); RDW Standard Deviation 47.9 fL (36.4-46.3); Red Blood Count 2.46 Miln/mm3 (4.00-5.20); White Blood Count 10.6 Thou/mm3 (3.6-11.0)
[2025-05-22 06:04] LABS: Hemoglobin 8.5 g/dL (12.0-16.0)
[2025-05-22 08:00] VITALS: BP 99/67; PULSE 82; RESP 16; TEMP 37.1; O2SAT 96
[2025-05-22] MEDS: DOCUSATE SOD 100 MG CAPSULE PO (08:10)
--- NOTE | 2025-05-22 08:35 | PD.LDPPPRG ---
Subjective Subjective Interval history: Delivery type: section converted to hysterectomy. Hemoglobin has stabilized around 8.5. Patient doing well this morning. No acute complaints. Ambulating, tolerating p.o., and voiding without difficulty. HTN/Pre-E screen negative: No CP, SOB, PAULA, visual changes, RUQ pain. : Yes Lochia: diminishing Bowel: Flatus + / BM + UOP: Voiding freely Exam Vital Signs Temp Pulse Resp BP Pulse Ox O2 Del Method 98.7 F 82 16 99/67 96 Room Air 05/22/25 08:00 05/22/25 08:00 05/22/25 08:00 05/22/25 08:00 05/22/25 08:00 05/22/25 08:00 Constitutional Constitutional: no acute distress Routine HEENT Exam Head: Present normocephalic and atraumatic Eye: Present EOMI and PERRL ENT: Present mucous membranes moist Routine Neck Exam Neck: Present supple and trachea midline Routine Respiratory Exam Respiratory: Present chest non-tender, lungs clear, normal breath sounds and no resp distress Routine Cardiovascular Exam Cardiovascular: Present RRR Routine Abdominal Exam Abdominal: Present soft and normoactive bowel sounds Routine Extremities Exam Extremities: Present full ROM Routine Skin Exam Skin: Present intact, dry and warm Routine Neurological Exam Neurological: Present alert, oriented X3 and CN II-XII intact Routine Psychiatric Exam Psychiatric: Present normal affect and normal thought process Objective Labs 05/22/25 05:23 05/21/25 05:09 Labs: Laboratory Results - last 24 hr 05/22/25 05:23 WBC 10.6 RBC 2.46 L Hgb 8.5 L Hct 24.2 L MCV 98 MCH 34.6 MCHC 35.1 RDW Std Deviation 47.9 H Plt Count 128 L Neut % (Auto) 71 Lymph % (Auto) 19 [place] % (Auto) 7 Eos % (Auto) 1 Baso % (Auto) 1 Neut # (Auto) 7.6 Lymph # (Auto) 2.0 [place] # (Auto) 0.7 Eos # (Auto) 0.1 Baso # (Auto) 0.1 Immature Gran # (Auto) 0.13 H Absolute Nucleated RBC 0.00 Immature Gran % 1 H Nucleated RBC % 0 Assessment & Plan Problem List (1) Encounter for supervision of high-risk with 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 Continue routine care 2. Transition to PO meds. 3. Encourage to ambulate/ breast-feed 4. Will keep patient another day due to extensive surgery. IV iron therapy today. Will review labs again tomorrow morning prior to discharge. (4) Intraoperative hemorrhage: Status: Acute Time Spent With Patient Time: Total time spent is greater than 50% in coordination of care (as documented) at patient's floor/unit and/or counseling patient:
--- NOTE | 2025-05-22 08:36 | PD.LDDS ---
DS: Providers Provider Date of admission: 05/20/25 05:36 Primary care physician: Physician No Primary/Family Admitting Provider: Doc Joseph MD Attending Provider on Admission: Doc Joseph MD Attending Provider on DC: Doc Joseph MD Discharging Provider: Doc Joseph MD DS: Diagnosis Discharge Diagnosis (1) Intraoperative hemorrhage: Status: Acute (2) S/P emergency hysterectomy: Status: Acute (3) Previous section: Status: Acute Problem List Completed Was Problem List Reviewed/Reconciled?: Yes Summary/Hosp Course Brief History: 35-year-old 3 para 2-0-0-2 at 39 weeks and 3 days estimated due date of 05/24/2025 based on presents for her scheduled repeat low-transverse and bilateral tubal ligation Patient denies any contractions or leakage of fluid or vaginal bleeding and reports good movements. Patient has no other complaints on presentation. Patient has a previous vertical skin incision from [place] but she would like to have a transverse incision for this delivery Peripartum Data Delivery Method: Low Transverse Episiotomy Description: None Procedures: Procedures Operation Date: 05/20/25 07:45 Actual Procedure Side Surgeon p w/tubal OB Doc Joseph MD Time Spent with Patient Time attestation: Total time spent providing and/or coordinating discharge services: Exam Vital Signs Temp Pulse Resp BP Pulse Ox O2 Del Method 98.7 F 82 16 99/67 96 Room Air 05/22/25 08:00 05/22/25 08:00 05/22/25 08:00 05/22/25 08:00 05/22/25 08:00 05/22/25 08:00 Discharge Plan Plan Patient Disposition: HOME (Self Care) Patient condition on transfer: Stable Prescriptions/Referrals Prescriptions/Med Rec: New ibuprofen 800 mg tablet 800 mg PO Q8H PRN (Reason: pain) Qty: 60 0RF hydrocodone-acetaminophen 5-325 mg tablet 1 tab PO Q6H MDD 4 PRN (Reason: pain) Qty: 20 0RF docusate sodium [Colace] 100 mg capsule 100 mg PO BID Qty: 60 0RF Referrals: Doc Joseph MD [Physician, [employer]IAISON] No Primary/Family,Physician [Primary Care Provider] Patient/Caregiver Discharge Instructions Meds to Beds: Yes Education Materials: C Section Dc Print Language: Danish Stand Alone Forms: Carol Ann Award Info., Patient Portal Info Letter Planned Discharge Date 05/23/25
[2025-05-22] MEDS: [UNRECOGNIZED DRUG - OTHER] IV (10:02)
[2025-05-22] MEDS: SODIUM CHLORIDE 0.9% IV (10:02)
[2025-05-22 13:56] VITALS: BP 95/56; PULSE 82; RESP 17; TEMP 36.7; O2SAT 97
[2025-05-22 20:10] VITALS: BP 94/63; PULSE 82; RESP 15; TEMP 36.8; O2SAT 97
[2025-05-23] MEDS: ACETAMINOPHEN IVPB 1,000 MG/100 ML VIAL 250 MG IV ×2 (00:01→06:27)
[2025-05-23 05:25] VITALS: BP 92/61; PULSE 76; RESP 16; TEMP 36.8; O2SAT 97
[2025-05-23 05:50] LABS: Basophils # (Auto) 0.1 Thou/mm3 (0.0-0.2); Basophils % (Auto) 1 % (0-2.5); Eosinophils # (Auto) 0.1 Thou/mm3 (0.0-0.5); Eosinophils % (Auto) 1 % (0-10); Hematocrit 25.8 % (36.0-46.0); Hemoglobin 8.9 g/dL (12.0-16.0); Immature Granulocytes Auto 0.13 Thou/mm3 (0.00-0.00); Lymphocytes # (Auto) 1.7 Thou/mm3 (1.0-4.8); Lymphocytes % (Auto) 18 % (10-50); Mean Corpuscular HGB Conc 34.5 g/dl (31.0-37.0); Mean Corpuscular Hemoglobin 34.4 pg (25.0-35.0); Mean Corpuscular Volume 100 fL (80-100); Monocytes # (Auto) 0.8 Thou/mm3 (0.0-0.8); Monocytes % (Auto) 8 % (0-12); Neutrophils # (Auto) 6.9 Thou/mm3 (1.8-7.7); Neutrophils % (Auto) 71 % (37-80); Nucleated Red Blood Cell # 0.03 Thou/mm3 (0.00-0.00); Nucleated Red Blood Cell % 0 /100 WBC (0); Platelet Count 154 Thou/mm3 (140-440); RDW Standard Deviation 48.0 fL (36.4-46.3); Red Blood Count 2.59 Miln/mm3 (4.00-5.20); White Blood Count 9.7 Thou/mm3 (3.6-11.0)
[2025-05-23 08:00] VITALS: BP 96/61; PULSE 74; RESP 16; TEMP 36.9
--- NOTE | 2025-05-23 08:08 | ESPR_ITS ---
Subjective Subjective Interval history: Delivery type: converted to hysterectomy, postoperative hemoglobin is stable, patient received IV iron infusion yesterday Patient doing well this morning. No acute complaints. Ambulating, tolerating p.o., and voiding without difficulty. HTN/Pre-E screen negative: No CP, SOB, PAULA, visual changes, RUQ pain. : Yes Lochia: diminishing Bowel: Flatus + / BM + UOP: Voiding freely Exam Vital Signs Temp Pulse Resp BP Pulse Ox O2 Del Method 98.3 F 76 16 92/61 97 Room Air 05/23/25 05:25 05/23/25 05:25 05/23/25 05:25 05/23/25 05:25 05/23/25 05:25 05/23/25 05:25 Constitutional Constitutional: no acute distress Routine HEENT Exam Head: Present normocephalic and atraumatic Eye: Present EOMI and PERRL ENT: Present mucous membranes moist Routine Neck Exam Neck: Present supple and trachea midline Routine Respiratory Exam Respiratory: Present chest non-tender, lungs clear, normal breath sounds and no resp distress Routine Cardiovascular Exam Cardiovascular: Present RRR Routine Abdominal Exam Abdominal: Present soft and normoactive bowel sounds Routine Extremities Exam Extremities: Present full ROM Routine Skin Exam Skin: Present intact, dry and warm Routine Neurological Exam Neurological: Present alert, oriented X3 and CN II-XII intact Routine Psychiatric Exam Psychiatric: Present normal affect and normal thought process Objective Labs 05/23/25 04:40 05/21/25 05:09 Labs: Laboratory Results - last 24 hr 05/20/25 05/23/25 06:05 04:40 WBC 9.7 RBC 2.59 L Hgb 8.9 L Hct 25.8 L MCV 100 MCH 34.4 MCHC 34.5 RDW Std Deviation 48.0 H Plt Count 154 D Neut % (Auto) 71 Lymph % (Auto) 18 [place] % (Auto) 8 Eos % (Auto) 1 Baso % (Auto) 1 Neut # (Auto) 6.9 Lymph # (Auto) 1.7 [place] # (Auto) 0.8 Eos # (Auto) 0.1 Baso # (Auto) 0.1 Immature Gran # (Auto) 0.13 H Absolute Nucleated RBC 0.03 H Immature Gran % 1 H Nucleated RBC % 0 Crossmatch See Detail Assessment & Plan Problem List (1) Intraoperative hemorrhage: Status: Acute (2) S/P emergency hysterectomy: Status: Acute Assessment and plan: PPD/POD#3 1. Continue routine care 2. Transition to PO meds. 3. Encourage to ambulate/ breast-feed 4. Anticipate discharge home today. 5. Follow-up in 7 days in the office for close postoperative monitoring (3) Previous section: Status: Acute Time Spent With Patient Time: Total time spent is greater than 50% in coordination of care (as documented) at patient's floor/unit and/or counseling patient:
--- NOTE | 2025-05-23 08:10 | PD.LDDS ---
DS: Providers Provider Date of admission: 05/20/25 05:36 Primary care physician: Physician No Primary/Family Admitting Provider: Doc Joseph MD Attending Provider on Admission: Doc Joseph MD Attending Provider on DC: Doc Joseph MD Discharging Provider: Doc Joseph MD DS: Diagnosis Discharge Diagnosis (1) S/P emergency hysterectomy: Status: Acute (2) Previous section: Status: Acute Problem List Completed Was Problem List Reviewed/Reconciled?: Yes Summary/Hosp Course Brief History: 35-year-old 3 para 2-0-0-2 at 39 weeks and 3 days estimated due date of 05/24/2025 based on presents for her scheduled repeat low-transverse and bilateral tubal ligation Patient denies any contractions or leakage of fluid or vaginal bleeding and reports good movements. Patient has no other complaints on presentation. Patient has a previous vertical skin incision from [place] but she would like to have a transverse incision for this delivery Peripartum Data Delivery Method: Low Transverse Episiotomy Description: None Procedures: Procedures Operation Date: 05/20/25 07:45 Actual Procedure Side Surgeon p w/tubal OB Doc Joseph MD Time Spent with Patient Time attestation: Total time spent providing and/or coordinating discharge services: Exam Vital Signs Temp Pulse Resp BP Pulse Ox O2 Del Method 98.3 F 76 16 92/61 97 Room Air 05/23/25 05:25 05/23/25 05:25 05/23/25 05:25 05/23/25 05:25 05/23/25 05:25 05/23/25 05:25 Discharge Plan Plan Patient Disposition: HOME (Self Care) Patient condition on transfer: Stable Prescriptions/Referrals Prescriptions/Med Rec: New ibuprofen 800 mg tablet 800 mg PO Q8H PRN (Reason: pain) Qty: 60 0RF hydrocodone-acetaminophen 5-325 mg tablet 1 tab PO Q6H MDD 4 PRN (Reason: pain) Qty: 20 0RF docusate sodium [Colace] 100 mg capsule 100 mg PO BID Qty: 60 0RF Referrals: Doc Joseph MD [Physician, NEWSPAPER OR PERIODICAL EDITOR] No Primary/Family,Physician [Primary Care Provider] Patient/Caregiver Discharge Instructions Meds to Beds: Yes Education Materials: Abdominal Hysterectomy Dc, C Section Dc Print Language: [place] Stand Alone Forms: Carol Ann Award Info., Patient Portal Info Letter, DC from Surgery Vaccines Vaccines Given During Stay: TDaP Discharge Order Discharge Orders: Discharge (Routine); Ordered 05/23/25 Ordered By: Doc Joseph Planned Discharge Date 05/23/25
[2025-05-23 12:00] VITALS: BP 98/64; PULSE 79; RESP 18; TEMP 36.7
== END 2025-05-23 15:15 | disposition home or self-care (01) | DRG 539 ==
LOC: S4SX 07:29 → S4NX 08:11
PROVIDERS: Obstetrics & Gynecology; Admitting Provider Obstetrics & Gynecology; Visit Provider Obstetrics & Gynecology
PROC: 0UL70ZZ Occlusion of Bilateral Fallopian Tubes, Open Approach (ICD-10-PCS; CPT 59514; principal; 2025-05-20 07:30)
DX: O34.211 Maternal care for low transverse scar from previous cesarean delivery (principal); O36.5930 Maternal care for other known or suspected poor fetal growth, third trimester, not applicable or unspecified; D25.1 Intramural leiomyoma of uterus; N80.03 Adenomyosis of the uterus; O34.13 Maternal care for benign tumor of corpus uteri, third trimester; O69.81X0 Labor and delivery complicated by cord around neck, without compression, not applicable or unspecified; Z37.0 Single live birth; Z3A.39 39 weeks gestation of pregnancy; O67.9 Intrapartum hemorrhage, unspecified; Z30.2 Encounter for sterilization; Z23 Encounter for immunization
CPT/HCPCS: 36415; 80048; 80307; 85025; 86780; 86850; 86900; 86901; 86923; 86927; 90715; A4217; A4314; A4649; J0131; J0689; J2250; J2274; J2371; J2590; J2704; J2916; J3010; J3490; J7030; J7050; J7120; A9270; J2270